=== PATIENT | male | born 1945 | race Hispanic/Latino ===

== ENCOUNTER → 2018-10-02 | Outpatient (CLI) | payer MEDICARE ==
[~2018-10-02] MED LIST: AMIO200T5 PO; AMLO10TA7 PO; ASPI-1197 PO; CALC-724 PO; CHOL200013 PO; GABA-529 PO; HYDR-4068 PO; METO-408 PO; MULT-1258 PO; NAPR220C15 PO; POTASSIUM GLUCONATE PO; PRIM50TA29 PO; PYRI100T2 PO; PYRI50TA15 PO; TAMS0.4C32 PO; TRAM50TA4 PO
== END | disposition home or self-care (01) ==
LOC: OIH 08:08
PROVIDERS: ATTEND Anesthesiology
DX: M19.032 Primary osteoarthritis, left wrist (principal); M19.042 Primary osteoarthritis, left hand
CPT/HCPCS: 73110; 73130

== ENCOUNTER → 2018-10-16 | Outpatient (CLI) | payer MEDICARE ==
[~2018-10-16] MED LIST changes: +VALS1TAB75 PO
== END | disposition home or self-care (01) ==
LOC: SHCH 08:10
PROVIDERS: ATTEND Internal Medicine Cardiovascular Disease
DX: I08.3 Combined rheumatic disorders of mitral, aortic and tricuspid valves (principal); I25.810 Atherosclerosis of coronary artery bypass graft(s) without angina pectoris; I10 Essential (primary) hypertension
CPT/HCPCS: 93306

== ENCOUNTER 2018-11-10 08:48 | Observation (INO) | payer MEDICARE ==
[2018-11-06 12:42] VITALS: BP 137/85
[2018-11-06 12:49] LABS: BASOPHILS % (AUTO) 0.8 % (0.0-5.0); EOSINOPHILS % (AUTO) 1.2 % (0.0-8.0); HEMATOCRIT 40.3 % (42-54); LYMPHOCYTES % (AUTO) 16.9 % (21.0-51.0); MEAN CORPUSCULAR HEMOGLOBIN 29.7 pg (27.0-33.0); MEAN CORPUSCULAR HGB CONC 33.3 g/dL (32.0-36.0); MEAN CORPUSCULAR VOLUME 89.1 fL (79-99); MONOCYTES % (AUTO) 9.7 % (3.0-13.0); NEUTROPHILS % (AUTO) 71.4 % (40.0-77.0); NUCLEATED RED BLOOD CELLS 0.1 % (0.0-0.19); PLATELET COUNT (AUTO) 192 K/uL (130-400); RED BLOOD CELL COUNT(AUTO) 4.53 MIL/uL (4.50-6.20); WHITE BLOOD COUNT (AUTO) 5.8 K/uL (4.8-10.8)
[2018-11-06 13:05] LABS: INR 1.02 (0.85-1.15); PARTIAL THROMBOPLASTIN TIME 27.1 SEC (26.3-35.5); PROTHROMBIN TIME 10.7 SEC (9.6-11.6)
[2018-11-06 13:06] LABS: CREATININE 0.9 mg/dL (0.5-1.5)
--- NOTE | 2018-11-06 13:09 | NUR ---
CALLED [email or web address] NO ANSWER LEFT MESSAGE ON RECORDER TO JUDY PRATT [employer].
[~2018-11-10] VITALS: Ht 170.2 cm; Wt 89.4 kg
[2018-11-10] VITALS (10 sets, daily range): BP systolic 104–145; BP diastolic 63–88
[~2018-11-10 08:48] MED LIST changes: -CALC-724 PO; -NAPR220C15 PO
[2018-11-10] MEDS ORDERED: CEFAZOLIN SODIUM 1 GM VIAL ONE (10:22)
[2018-11-10] MEDS ORDERED: IOHEXOL-350 50ML VIAL IV ONE (10:22)
[2018-11-10] MEDS ORDERED: LIDOCAINE HCL 1% MDV 50ML VIAL ONE (10:23)
[2018-11-10] MEDS ORDERED: MEPERIDINE-PF 25 MG/ML SYG ONE ×3 (10:23→11:57)
[2018-11-10] MEDS ORDERED: MIDAZOLAM HCL 1 MG/ML 2ML VIAL ONE ×3 (10:23→11:56)
[2018-11-10] MEDS ORDERED: BUPIVACAINE/PF 0.25% 30ML VIAL IJ ONE (10:25)
[2018-11-10] MEDS ORDERED: LOSA50TA64 PO (10:49)
[2018-11-10] MEDS ORDERED: iron PO (10:49)
[2018-11-10] MEDS ORDERED: MAGN400T40 PO (10:49)
[2018-11-10] MEDS ORDERED: FINA5TAB41 PO (10:49)
[2018-11-10] MEDS ORDERED: APIX5TAB PO (10:55)
[2018-11-10] MEDS ORDERED: ATOR10TA69 PO (10:55)
[2018-11-10] MEDS ORDERED: iron IM (10:55)
[2018-11-10] MEDS ORDERED: CALC1CAP19 PO (11:03)
[2018-11-10] MEDS ORDERED: TRAMADOL HCL 50 MG TABLET PO PRN (13:00)
[2018-11-10] MEDS ORDERED: ACETAMINOPHEN EXTRA STRENGTH 500 MG TABLET PO PRN (13:00)
[2018-11-10] MEDS ORDERED: ACETAMINOPHEN-CODEINE 300/30MG TAB PO PRN (13:00)
--- NOTE | 2018-11-10 13:20 | NUR ---
ARRIVAL TO FLOOR PT IS AAOX4 DENIES CP DENIES SOB DENIES NV LEFT ARM SLING IN PLACE, LEFT UPPER CHEST DRESSING CLEAN DRY AND INTACT. FAMILY IS IN ROOM. CALL LIGHT WITHIN REACH.
[2018-11-10] MEDS ORDERED: HYDRALAZINE HCL 20 MG/ML VIAL IV SCH (13:30)
[2018-11-10] MEDS: GABAPENTIN 100 MG CAPSULE PO SCH (15:55)
--- NOTE | 2018-11-10 18:30 | NUR ---
STATUS NO COMPLAINTS. LEFT UPPER CHEST DRESSING WNL. LEFT ARM SLING IN PLACE.
[2018-11-10] MEDS: **HM** TOPROL XL 25MG PO SCH (20:08)
[2018-11-10] MEDS: PYRIDOXINE HCL 50 MG TABLET PO SCH (20:11)
[2018-11-10] MEDS: PRIMIDONE 50 MG TAB PO SCH (20:11)
[2018-11-10] MEDS ORDERED: TAMSULOSIN HCL 0.4 MG CAP.ER.24H PO SCH (21:00)
--- NOTE | 2018-11-11 | NUR ---
PT HAS BEEN STABLE. NO DISTRESS NOTED. SLING IN PLACE. PT ABLE TO AMBULATE. STATED GAVE HIM HOME MEDICATIONS OF GABAPENTIN AND HYDROCODONE.
[2018-11-11 03:30] VITALS: BP 132/86
[2018-11-11 07:37] VITALS: BP 133/80
[2018-11-11] MEDS: GABAPENTIN 100 MG CAPSULE PO SCH (07:38)
[2018-11-11] MEDS: **HM** TOPROL XL 25MG PO SCH (07:39)
[2018-11-11] MEDS: PRIMIDONE 50 MG TAB PO SCH (07:39)
[2018-11-11] MEDS: PYRIDOXINE HCL 50 MG TABLET PO SCH (07:39)
--- NOTE | 2018-11-11 08:00 | NUR ---
ASSESSMENT PT IS AAOX4. BREATHING PATTERN IS EVEN AND UNLABORED. LEFT UPPER CHEST DRESSING IS CLEAN DRY AND INTACT. DENIES PAIN, LEFT ARM SLING IN PLACE, CALL LIGHT WITHIN REACH.
[2018-11-11] MEDS ORDERED: FINASTERIDE 5 MG TABLET PO SCH (09:00)
[2018-11-11] MEDS ORDERED: MULTIVITAMIN WITH MINERALS TABLET PO SCH (09:00)
[2018-11-11] MEDS ORDERED: ATORVASTATIN CALCIUM 10 MG TABLET PO SCH (09:00)
[2018-11-11] MEDS ORDERED: POTASSIUM GLUCONATE 595 MG PO SCH (09:00)
[2018-11-11] MEDS ORDERED: AMLODIPINE BESYLATE 5 MG TAB PO SCH (09:00)
[2018-11-11] MEDS ORDERED: MAGNESIUM OXIDE 400 MG TABLET PO SCH (09:00)
[2018-11-11] MEDS ORDERED: LOSARTAN 50 MG TABLET PO SCH (09:00)
[2018-11-11] MEDS ORDERED: ASPIRIN 81MG TAB.CHEW PO SCH (09:00)
[2018-11-11] MEDS ORDERED: FERROUS SULFATE 325 MG TABLET.DR PO SCH (09:00)
[2018-11-11] MEDS ORDERED: PYRIDOXINE HCL 50 MG PO SCH (09:00)
--- NOTE | 2018-11-11 09:41 | NUR ---
Joana Sandoval met with pt who lives with his Nora [phone]. Pt reports he is independent of all ALDS, no DME, or in home care services. Pt has rx coverage and denies dc needs. Plan is home at dc Addendum: 11/11/18 at 0943 by JAN LAUGHLIN Amended: Links added.
[2018-11-11 11:18] VITALS: BP 131/92
--- NOTE | 2018-11-11 13:06 | NUR ---
DC TO HOME PATIENT AND FAMILY VERBALIZE DC INSTRUCTIONS UNDERSTANDING, AGREE TO TAKE MEDICATIONS ORDERED, ALL QUESTIONS ANSWERED. PIV REMOVED CATH TIP INTACT, TELE PACK REMOVED. DOWN VIA WC WITH NURSE AIDE AND FAMILY
== END 2018-11-11 13:15 | disposition home or self-care (01) ==
LOC: DAH 08:48 → DAHIP 08:49 → 2AH 13:27
PROVIDERS: ADMIT Internal Medicine; ATTEND Internal Medicine
DX: I11.0 Hypertensive heart disease with heart failure (principal); I50.22 Chronic systolic (congestive) heart failure; I49.5 Sick sinus syndrome; I48.1 Persistent atrial fibrillation; R00.1 Bradycardia, unspecified; I25.10 Atherosclerotic heart disease of native coronary artery without angina pectoris; D68.59 Other primary thrombophilia; G47.33 Obstructive sleep apnea (adult) (pediatric); Z95.1 Presence of aortocoronary bypass graft; Z95.810 Presence of automatic (implantable) cardiac defibrillator; Z87.891 Personal history of nicotine dependence; Z79.01 Long term (current) use of anticoagulants
CPT/HCPCS: 33225; 33249; 36415; 71045; 80048; 85025; 85610; 85730; 93005; A4606; C1769; C1882; C1895; C1900; G0378 ×24; J0690; J2175 ×3; J2250 ×3; J3490 ×2; Q9967; 99156; 99157

== ENCOUNTER → 2019-01-02 | Outpatient (CLI) | payer MEDICARE ==
[~2019-01-02] MED LIST changes: -AMIO200T5 PO; +APIX5TAB PO; +ATOR10TA69 PO; +CALC1CAP19 PO; +FINA5TAB41 PO; +LOSA50TA64 PO; +MAGN400T40 PO; -VALS1TAB75 PO; +iron IM; +iron PO
== END | disposition home or self-care (01) ==
LOC: RAH 13:08
PROVIDERS: ATTEND Family Medicine
DX: M43.16 Spondylolisthesis, lumbar region (principal); M47.816 Spondylosis without myelopathy or radiculopathy, lumbar region; M48.061 Spinal stenosis, lumbar region without neurogenic claudication; M85.88 Other specified disorders of bone density and structure, other site; I70.0 Atherosclerosis of aorta
CPT/HCPCS: 72131